=== PATIENT | female | born 1990 | race Caucasian/White ===

== ENCOUNTER 2024-10-18 11:39 | Inpatient (IN) | payer BC ==
[2024-10-18] MEDS: LACTATED RINGERS 1,000 ML IV ONE (12:00)
[2024-10-18 12:13] LABS: Basophils # (A) 0.1 k/uL (0-0.2); Basophils % (A) 1 %; Eosinophils # (A) 0.1 k/uL (0-0.7); Eosinophils % (A) 1 %; HCT 36.1 % (34.0-46.0); HGB 12.4 gm/dL (11.4-16.0); Lymphocytes # (A) 2.1 k/uL (1.0-4.8); Lymphocytes % (A) 17 %; MCHC 34.3 g/dL (31.0-37.0); MCV 90.3 fL (80.0-100.0); Mean Platelet Volume 8.2; Monocytes # (A) 0.7 k/uL (0-1.0); Monocytes % (A) 6 %; Neutrophils % (A) 74 %; Platelet Count 223 k/uL (150-450); RDW 12.4 % (11.5-15.5); WBC 12.2 k/uL (3.8-10.6)
[2024-10-18 12:40] LABS: Appearance,Urine Clear (Clear); Bilirubin,Urine Negative (Negative); Blood,Urine Negative (Negative); Color,Urine Colorless; Glucose,Urine (UA) Negative (Negative); Ketones,Urine Negative (Negative); Leukocyte Esterase,Urine Negative (Negative); Nitrite,Urine Negative (Negative); PH, Urine 6.5 (5.0-8.0); Protein,Urine Negative (Negative); Specific Gravity,Urine 1.007 (1.001-1.035); Urobilinogen,Urine <2.0 mg/dL (<2.0)
[2024-10-18] MEDS ORDERED: OXYTOCIN 10 UNIT/ML 1 ML VIAL IM PRN (15:55)
[2024-10-18] MEDS ORDERED: CARBOPROST TROMETHAMINE 250 MCG/ML 1 ML AMP IM PRN (15:55)
[2024-10-18] MEDS ORDERED: miSOPROStoL 200 MCG TAB PO PRN (15:55)
[2024-10-18] MEDS ORDERED: TRANEXAMIC 1,000 MG/100ML-NACL 1,000 MG in EMPTY BAG 1 BAG IV PRN (15:55)
[2024-10-18] MEDS ORDERED: METHYLERGONOVINE 0.2 MG/ML 1 ML AMP IM PRN (15:55)
[2024-10-18] MEDS ORDERED: OXYTOCIN 30 UNITS/500 ML NS 30 UNIT in SALINE 1 500ML.BAG IV SCH (16:00)
[2024-10-18] MEDS: LACTATED RINGERS 1,000 ML IV SCH (16:00)
[2024-10-18] MEDS: CITRIC ACID-SODIUM CITRATE 15 ML CUP PO ONE (16:22)
[2024-10-18] MEDS ORDERED: ONDANSETRON 4 MG/2 ML VIAL ONE (16:54)
[2024-10-18] MEDS ORDERED: OXYTOCIN 30 UNITS/500 ML NS BAG IV ONE (16:54)
[2024-10-18] MEDS ORDERED: MORPHINE SULFATE (PF) 0.3 MG/0.3 ML SYR ONE (16:54)
[2024-10-18] MEDS ORDERED: KETOROLAC 15 MG/ML 1 ML VIAL ONE (16:54)
[2024-10-18] MEDS ORDERED: fentaNYL (PF) 50 MCG/ML 2 ML AMP ONE (16:54)
[2024-10-18] MEDS ORDERED: NALBUPHINE (ANES) 10 MG/ML - 1 ML AMP ONE (16:54)
[2024-10-18] MEDS ORDERED: METOCLOPRAMIDE 5 MG/ML 2 ML VIAL IVP PRN (17:45)
[2024-10-18] MEDS ORDERED: ONDANSETRON 4 MG/2 ML VIAL IVP PRN (17:45)
[2024-10-18] MEDS ORDERED: diphenhydrAMINE 25 MG CAP PO PRN (17:45)
[2024-10-18] MEDS ORDERED: ZOLPIDEM 5 MG TAB PO PRN (17:45)
[2024-10-18] MEDS ORDERED: LANOLIN CREAM 1 GM TUBE TOPICAL PRN (17:45)
[2024-10-18] MEDS ORDERED: diphenhydrAMINE 50 MG/ML 1 ML VIAL IVP PRN ×2 (17:45)
[2024-10-18] MEDS ORDERED: NALOXONE 0.4 MG/ML 1 ML VIAL IV PRN ×2 (17:45→22:42)
--- NOTE | 2024-10-18 17:53 | P.HPOB ---
History of Present Illness H&P Date: 10/18/24 Chief Complaint: 37-3/7 weeks, labor, previous section The patient is a 34-year-old 2 para 1-0-0-1 admitted at 37-3/7 weeks as established by in vitro fertilization dating parameters. She was seen in the office late this morning at which time she was quite uncomfortable and having regular contractions. Digital cervical examination demonstrated her cervix to be fingertip and 50% effaced. She was sent to the hospital for IV hydration and to rule out labor. She continued to have contractions approximately every 2 to 5 minutes for the entire afternoon and ultimately changed her cervix to 1+ centimeters dilated, 60% effaced with the vertex and presentation at -2 station. She has a history of a previous section and has requested repeat. Her was additionally complicated by presumptive gestational diabetes for which her blood sugars have been normal and she has had routine reassuring testing since 32 weeks on a weekly basis. On labor and delivery, all signs are reassuring with a category 1 heart rate tracing. Given her cervical change and history of previous section with request for repeat, she will be taken to the operating room for repeat low-transverse section. Obstetrical history: 2 para 1-0-0-1 with 1 term delivery without complications. Current statistics are listed in history of present illness. EDC of 10/28/2024 was established by IVF dating and confirmed by early ultrasound. Laboratory workup demonstrates a blood type of a positive with a negative antibody screen. Rubella status is immune. The remainder of the laboratory workup was within normal limits. Early Glucola was normal but followed by an elevated second trimester Glucola. The patient requested to just be treated as a diabetic. The remainder of the laboratory workup was within normal limits and group B strep status is negative. Gynecologic history: Unremarkable with no history of any infections to include STDs. Review of Systems Review of systems is confined to history of present illness. Past Medical History Additional Past Medical History / Comment(s): GDM, Bowel resectioin 2017, HX HSV Valtrex History of Any Multi-Drug Resistant Organisms: None Reported Additional Past Surgical History / Comment(s): Bowel Resection 2017 Past Anesthesia/Blood Transfusion Reactions: No Reported Reaction Past Psychological History: No Psychological Hx Reported Smoking Status: Never smoker Past Alcohol Use History: None Reported Past Drug Use History: None Reported Medications and Allergies Home Medications Medication Instructions Recorded Confirmed Type Omeprazole [PriLOSEC] 20 mg PO DAILY 12/15/22 10/18/24 History valACYclovir HCL [Valtrex] 500 mg PO DAILY 12/15/22 10/18/24 History Cholecalciferol [Vitamin D3 (10 10 mcg PO DAILY 10/18/24 10/18/24 History Mcg = 400 Iu)] Cyanocobalamin (Vitamin B-12) 1,000 mcg PO DAILY 10/18/24 10/18/24 History [Vitamin B-12] Doxylamine Succinate [Unisom] 25 mg PO DAILY 10/18/24 10/18/24 History Magnesium 200 mg PO DAILY 10/18/24 10/18/24 History Vit No.179/Iron/Folic 1 each PO DAILY 10/18/24 10/18/24 History [ Tablet] buPROPion [Wellbutrin] 100 mg PO BID 10/18/24 10/18/24 History Allergies Allergy/AdvReac Type Severity Reaction Status Date / Time doxycycline AdvReac Unknown Verified 10/18/24 11:43 Exam Vital Signs Temp Pulse Resp BP Pulse Ox 10/18/24 16:29 97.3 F L 86 18 129/64 95 10/18/24 16:00 97.5 F L 83 18 116/68 Intake and Output 10/18/24 10/18/24 10/18/24 06:59 14:59 22:59 Other: Weight 83.461 kg 83.461 kg This is a well-developed, well-nourished white female in no acute distress but in discomfort with each contraction. Her heart has a regular rhythm and rate without murmur. Her lungs are clear to auscultation bilateral in all collier. Her abdomen is gravid, nondistended, has normal active bowel sounds, soft, nontender, and without any palpable masses aside from uterine fundus. Her extremities are without any cyanosis, clubbing, or edema and are nontender to palpation bilaterally. Digital cervical examination ultimately was found to be approximately 1 to 2 cm dilated, 60 to 70% effaced, with a vertex and presenta tion at -2 station which is documented change from earlier. Results Result Diagrams: 10/18/24 12:00 Abnormal Lab Results - Last 24 Hours (Table) 12/10/24 Range/Units 12:00 WBC 12.2 H (3.8-10.6) k/uL Neutrophils # 9.0 H (1.3-7.7) k/uL Assessment and Plan (1) Previous section Current Visit: Yes Status: Acute Code(s): Z98.891 - HISTORY OF UTERINE SCAR FROM PREVIOUS SURGERY SNOMED Code(s): 199324440 (2) Active labor at term Current Visit: Yes Status: Acute Code(s): ISG5659 - SNOMED Code(s): 31392928 Plan: The patient is admitted for repeat low-transverse section. The risks and complications have been explained and the patient has understood and agreed to proceed.
--- NOTE | 2024-10-18 17:58 | P.OP ---
Date of Procedure: 10/18/24 Preoperative Diagnosis: #1. 37-3/7 weeks, early labor #2. Previous section, requesting repeat #3. Presumptive gestational diabetes Postoperative Diagnosis: Same Procedure(s) Performed: #1. Repeat low-transverse section Anesthesia: spinal Surgeon: Marcos Patel Activity Therapy Teacher #1: Ariana Navarro Estimated Blood Loss (ml): 550 IV fluids (ml): 1,000 Urine output (ml): 300 Pathology: none sent Condition: stable Disposition: floor Operative Findings: See history of present illness for indications leading to section. The patient was taken to the operating room where she was delivered of a viable 6 pound 8 ounce baby girl with Apgars of 9 at 1 minute and 9 at 5 minutes in the occiput anterior position. The placenta was delivered manually, intact, and grossly normal with a grossly normal three-vessel cord. The uterus, tubes, and ovaries were entirely normal to inspection. There was a average amount of scar tissue noted at the fascia and rectus muscles. Clear urine was seen throughout the case. Description of Procedure: Patient was prepped and draped in usual fashion after spinal anesthesia was administered by the anesthesiologist. A Pfannenstiel incision was made through pre-existing scar and extended into the abdominal cavity without difficulty. The bladder peritoneum was relatively high and was therefore elevated, incised, and reflected distally. A 2 cm incision was made in the lower uterine segment in the transverse plane to enter the uterus at which time clear fluid was noted and fairly significant. The uterine incision was extended both directions using the bandage scissors. The head was delivered up and through the incision where the nose and mouth were thoroughly suction. The remainder of the was delivered onto the field where the cord was doubly clamped, cut, and the passed resuscitative measures with weight and Apgars as noted above. The placenta was then delivered manually, intact, grossly normal with a grossly normal three-vessel cord. The uterus was exteriorized and the anterior cavity of the uterus swept of any remaining placental or membranous fragments. The margins of the uterine incision were grasped with Manriquez clamps and the incision closed in 2 layers. The first layer was a running locking stitch of 0 chromic catgut from margin to margin followed by a running imbricating layer of 0 chromic catgut from margin to margin. Hemostasis appeared to be excellent. The posterior cul-de-sac was suctioned with a guard followed by laparotomy sponge. The uterus was replaced within the abdominal cavity and the gutters swept of any remaining blood, fluid, or clot. The incision was reexamined and any small points of bleeding made hemostatic with the Bovie. After ensuring hemostasis, the parietal peritoneum was loosely reapproximated and the layer of muscles examined and found to be hemostatic. The fascia was closed with a single running stitch of 0 Vicryl proceeding from margin to margin. The subcutaneous tissues were irrigated, made hemostatic with the Bovie, and reapproximated with a running stitch of 3-0 plain catgut the skin was reapproximated with a running subcuticular stitch of 4-0 Vicryl followed by half-inch Steri-Strips placed with Mastisol. Quantitative blood loss for the case was 550 mL. There were no complications. All sponge, instrument, needle counts were correct. The patient tolerated the procedure well and proceeded to the recovery room in stable condition.
[2024-10-18 18:03] VITALS: RESP 16
[2024-10-19] MEDS: SENNOSIDES-DOCUSATE SODIUM 1 EACH TAB PO SCH (01:08)
[2024-10-19] MEDS: ACETAMINOPHEN TAB 500 MG TAB PO SCH (01:28)
[2024-10-19] MEDS: SIMETHICONE 80 MG CHEWABLE PO PRN (01:29)
[2024-10-19] MEDS: KETOROLAC 15 MG/ML 1 ML VIAL IVP PRN (04:56)
[2024-10-19] MEDS: diphenhydrAMINE 50 MG CAP PO PRN (05:15)
[2024-10-19 06:27] LABS: Basophils % (A) 0 %; Eosinophils # (A) 0.1 k/uL (0-0.7); Eosinophils % (A) 1 %; HCT 31.5 % (34.0-46.0); HGB 10.9 gm/dL (11.4-16.0); Lymphocytes % (A) 19 %; MCH 31.6 pg (25.0-35.0); MCHC 34.6 g/dL (31.0-37.0); MCV 91.5 fL (80.0-100.0); Mean Platelet Volume 8.7; Monocytes # (A) 0.6 k/uL (0-1.0); Monocytes % (A) 6 %; Neutrophils # (A) 7.6 k/uL (1.3-7.7); Neutrophils % (A) 72 %; Platelet Count 189 k/uL (150-450); RBC 3.44 m/uL (3.80-5.40); RDW 12.9 % (11.5-15.5); WBC 10.5 k/uL (3.8-10.6)
--- NOTE | 2024-10-19 06:50 | P.PN ---
Progress Note - Text Progress Note Date: 10/19/24 Patient was seen and examined side. Received intrathecal morphine 300 mcg , and for postop pain control as per surgeon request. Today postop day 1- s/p . Today complaining her pain levels 3-4 out of 10 in severity. Denied any weakness. Mild itching. Physical exam: Vitals : stable vitals, afebrile Assessment and plan: S/p postop day 1 - c- section Continue oral pain medications as needed as per primary care. Please contact anesthesia as needed.
--- NOTE | 2024-10-19 08:24 | P.PNOBGPC ---
Subjective - Subjective Patient reports: Reports appetite normal, Reports voiding normally, Reports pain well controlled, Reports ambulating normally : doing well Objective - Vital Signs Latest vital signs: Vital Signs Temp Pulse Resp BP Pulse Ox 10/19/24 05:00 16 10/19/24 04:00 98.3 F 68 16 100/64 10/19/24 03:42 16 96 10/19/24 01:42 16 10/19/24 00:00 97.6 F 83 16 120/75 97 10/18/24 23:42 16 98 10/18/24 22:42 98.4 F 84 16 120/52 100 10/18/24 21:45 98.5 F 16 10/18/24 19:45 98.2 F 89 16 120/75 10/18/24 19:30 98.5 F 88 16 123/74 10/18/24 19:15 98.4 F 88 16 10/18/24 19:00 76 16 113/65 98 10/18/24 18:45 79 16 106/76 99 10/18/24 18:30 96.8 F L 87 16 110/71 99 10/18/24 18:15 85 16 121/62 98 10/18/24 18:00 90 16 118/68 98 10/18/24 17:45 97.3 F L 89 16 101/56 100 10/18/24 16:29 97.3 F L 86 18 129/64 95 10/18/24 16:00 97.5 F L 83 18 116/68 Intake and Output 10/18/24 10/19/24 10/19/24 22:59 06:59 14:59 Intake Total 250 Output Total 1490 2150 Balance -1490 -1900 Intake: Oral 250 Output: Urine 250 2150 Uretheral (Georges) 100 Output, Quantitative 1240 Blood Loss Other: Weight 83.461 kg - Exam Extremities: Present: normal Abdomen: Present: normal appearance, soft. Absent: distention, tenderness Incision: Present: normal, dry, intact Uterus: Present: normal, firm (Uterine fundus is tonic and appropriately tender below the umbilicus.) - Labs Labs: Abnormal Lab Results - Last 24 Hours (Table) 10/18/24 10/19/24 Range/Units 12:00 06:04 WBC 12.2 H (3.8-10.6) k/uL RBC 3.44 L (3.80-5.40) m/uL Hgb 10.9 L (11.4-16.0) gm/dL Hct 31.5 L (34.0-46.0) % Neutrophils # 9.0 H (1.3-7.7) k/uL Assessment and Plan (1) Previous section Current Visit: Yes Status: Acute Code(s): Z98.891 - HISTORY OF UTERINE SCAR FROM PREVIOUS SURGERY SNOMED Code(s): 935818686 (2) Active labor at term Current Visit: Yes Status: Acute Code(s): PKG9121 - SNOMED Code(s): 23988749 (3) S/P section Current Visit: Yes Status: Acute Code(s): Z98.891 - HISTORY OF UTERINE SCAR FROM PREVIOUS SURGERY SNOMED Code(s): 652916095 Plan: Continue routine and postoperative care. I have encouraged the patient to ambulate in the hallways routinely. I would anticipate discharge home tomorrow pending no complications.
[2024-10-19] MEDS: KETOROLAC 15 MG/ML 1 ML VIAL IVP STA (20:35)
[2024-10-20] MEDS: IBUPROFEN 800 MG TAB PO SCH (06:01)
[2024-10-20 08:27] VITALS: BP 116/76; PULSE 82; TEMP 98.2
--- NOTE | 2024-10-20 08:45 | P.DS ---
Providers Date of admission: 10/18/24 15:40 Expected date of discharge: 10/20/24 Attending physician: Marcos Patel Primary care physician: Stated None - Discharge Diagnosis(es) (1) Previous section Current Visit: Yes Status: Acute (2) Active labor at term Current Visit: Yes Status: Acute (3) S/P section Current Visit: Yes Status: Acute Hospital Course: Patient is a 34-year-old 2 para 1-0-0-1 admitted at 37-3/7 weeks by good dating parameters. She is admitted after having been seen in the office with significant contractions and was found to be in early labor with a history of a previous section and requesting repeat. As a result, she was taken to the operating room where she underwent repeat low-transverse section in an uncomplicated fashion and was delivered of a viable 6 pound 8 ounce baby girl with Apgars of 9 at 1 minute and 9 at 5 minutes. Her and postoperative course was unremarkable with vital signs remaining stable and her temperature was afebrile throughout. She was deemed stable for discharge on and postoperative day #2 and was discharged home to follow-up in the office in 2 weeks for an incision check in 6 weeks routinely. Discharge instructions included calling for any significantly increased bleeding or foul- smelling lochia, significantly increased fever or abdominal pain, perineal complaints, breast complaints, incisional complaints, or anything else that concerned her. She was additionally instructed to have nothing in the vagina for at least 6 weeks time to include intercourse and to abstain from any heavy lifting over the same period of time. She was lastly instructed to do no driving until off of all pain medications or 2 weeks time, whichever came first. She understood her instructions and agrees to follow-up as noted above. Discharge medications included continued vitamins as she has opted to breast-feed. She was otherwise to use [id number] analgesic pain medications. She was additionally provided a prescription for oxycodone 5 mg, 1-2 p.o. every 6 hours as needed pain, #20 dispensed with no refills. Maternal blood type is a positive and rubella status is immune. Discharge hemoglobin and hematocrit were 10.9 and 31.5 respectively. Procedures: 1. Repeat low-transverse section Patient Condition at Discharge: Stable Plan - Discharge Summary New Discharge Prescriptions: No Action Omeprazole [PriLOSEC] 20 mg PO DAILY Cholecalciferol [Vitamin D3 (10 Mcg = 400 Iu)] 10 mcg PO DAILY valACYclovir HCL [Valtrex] 500 mg PO DAILY buPROPion [Wellbutrin] 100 mg PO BID Vit No.179/Iron/Folic [ Tablet] 1 each PO DAILY Magnesium 200 mg PO DAILY Doxylamine Succinate [Unisom] 25 mg PO DAILY Cyanocobalamin (Vitamin B-12) [Vitamin B-12] 1,000 mcg PO DAILY Discharge Medication List Omeprazole [PriLOSEC] 20 mg PO DAILY 12/15/22 [History] valACYclovir HCL [Valtrex] 500 mg PO DAILY 12/15/22 [History] Cholecalciferol [Vitamin D3 (10 Mcg = 400 Iu)] 10 mcg PO DAILY 10/18/24 [History] Cyanocobalamin (Vitamin B-12) [Vitamin B-12] 1,000 mcg PO DAILY 10/18/24 [History] Doxylamine Succinate [Unisom] 25 mg PO DAILY 10/18/24 [History] Magnesium 200 mg PO DAILY 10/18/24 [History] Vit No.179/Iron/Folic [ Tablet] 1 each PO DAILY 10/18/24 [History] buPROPion [Wellbutrin] 100 mg PO BID 10/18/24 [History] Follow up Appointment(s)/Referral(s): Marcos Patel MD [STAFF PHYSICIAN] - 11/01/24 10:30 am (Post appointment 11-29-2024 at 1:15pm) Discharge Disposition: HOME SELF-CARE
== END 2024-10-20 13:30 | disposition home or self-care (01) | DRG 787 ==
LOC: FBPOP 11:39 → 4FBP 15:40
PROVIDERS: ADMIT Obstetrics & Gynecology; ATTEND Obstetrics & Gynecology
PROC: 10D00Z1 Extraction of Products of Conception, Low, Open Approach (ICD-10-PCS; principal; 2024-10-18 17:00)
DX: O34.211 Maternal care for low transverse scar from previous cesarean delivery (principal); O98.52 Other viral diseases complicating childbirth; O24.429 Gestational diabetes mellitus in childbirth, unspecified control; A60.09 Herpesviral infection of other urogenital tract; Z37.0 Single live birth; Z3A.37 37 weeks gestation of pregnancy; Z79.899 Other long term (current) drug therapy; Z88.1 Allergy status to other antibiotic agents; Z87.19 Personal history of other diseases of the digestive system
CPT/HCPCS: 36415; 59025; 81003; 85025; 86850; 86900; 86901; 96360; 96361; 99214